=== PATIENT | male | born 1970 | race Caucasian/White ===

== ENCOUNTER 2018-08-12 18:01 | Emergency (ER) | payer BC ==
[2018-08-12] MEDS ORDERED: FAMOTIDINE 20 MG/2 ML VIAL IV ONE (18:41)
[2018-08-12] MEDS ORDERED: ONDANSETRON 4 MG/2 ML VIAL ONE (18:41)
[2018-08-12 18:51] LABS: Absolute Lymphocytes (CBC) 2.3 K/uL (0.7-4.9); Absolute Monocytes 1.2 K/uL (0.1-1.3); Absolute Neutrophil 8.9 K/uL (1.8-8.0); Basophils % 0.5 % (0-1.3); Eosinophils % 3.2 % (0-4.4); Lymphocytes % 17.8 % (15.3-44.8); MPV 8.1 fL (7.6-11.3); Monocytes % 9.6 % (3.3-12.3); RBC Red Blood Cell Count 5.07 M/uL (4.33-5.43)
--- NOTE | 2018-08-12 19:04 | RAD REPORT ---
EXAM DESCRIPTION: CT - Stone Protocol - 08/12/2018 6:50 pm CLINICAL HISTORY: Abdominal pain, epigastric pain, gastric cramping, nausea, vomiting and diarrhea, prior hernia repair COMPARISON: None. TECHNIQUE: Axial [address] imaging of the abdomen and pelvis was performed without IV contrast. No IV contrast was given because of allergy, abnormal renal function, patient refusal or physician re quest. No oral contrast administered. All CT scans are performed using dose optimization technique as appropriate and may include automated exposure control or mA/KV adjustment according to patient size. FINDINGS: No suspicious findings in the lung bases. The liver, spleen and pancreas show no suspicious findings on non-contrast imaging. Gallbladder and b iliary tree are also without suspicious finding. Gallstones can be occult on CT imaging. No hydronephrosis or suspicious renal mass. No significant adrenal finding. Isodense renal masses an d pyelonephritis cannot be excluded in the absence of IV contrast. The urinary bladder is without sig nificant finding. No gastric dilatation or wall thickening. No epigastric abnormality seen. No free air, free fluid or inflammatory stranding. No mass or bulky lymphadenopathy. Postsurgical changes are present from prior left inguinal hernia repair. No acute process suspected. No suspicious bony findings. Advanced for age vascular calcifications. IMPRESSION: Non-contrast enhanced CT abdomen and pelvis imaging show emergent finding. Full assessment is limited is the absence of IV contrast.
[2018-08-12 19:05] LABS: ALT/SGPT 26 U/L (12-78); AST/SGOT 16 U/L (15-37); Albumin 3.8 g/dL (3.4-5.0); Alkaline Phosphatase 57 U/L (45-117); BUN Blood Urea Nitrogen 9 mg/dL (7-18); Bicarbonate 29 mmol/L (21-32); Bilirubin Direct < 0.1 mg/dL (0-0.2); Bilirubin Total 0.2 mg/dL (0.2-1.0); Glucose Level 100 mg/dL (74-106); Lipase 98 U/L (73-393); Potassium 3.7 mmol/L (3.5-5.1); Protein, Total 7.4 g/dL (6.4-8.2); Sodium Level 142 mmol/L (136-145)
--- NOTE | 2018-08-12 19:17 | ER ---
Nurse's Notes [facility] Name: Juventino Klein Age: 47 yrs Sex: Male : 1970 Arrival Date: 08/12/2018 Time: 18:05 Bed 23 Private MD: Diagnosis: Generalized abdominal pain Presentation: 08/12 18:06 Presenting complaint: Patient states: my stomach is crampy and felt tight, and i fell hj bloated; reports diarrhea reports N/V; denies fever and chills; denies taking meds LABEL DRIER:. Transition of care: patient was not received from another setting of care. Onset of symptoms was August 12, 2018. Risk Assessment: Do you want to hurt yourself or someone else? Patient reports no desire to harm self or others. Initial Sepsis Screen: Does the patient meet any 2 criteria? No. Patient's initial sepsis screen is negative. Does the patient have a suspected source of infection? No. Patient's initial sepsis screen is negative. 18:06 Method Of Arrival: Ambulatory 18:06 Acuity: PARISH 3 18:07 Care prior to arrival: None. Triage Assessment: 18:08 General: Appears in no apparent distress. uncomfortable, Behavior is calm, cooperative, hj appropriate for age. Pain: Complains of pain in abdomen. GI: Reports lower abdominal pain, upper abdominal pain, diarrhea, nausea, vomiting. Historical: - Allergies: 18:08 No Known Allergies; hj - Home Meds: 18:08 None [Active]; hj - PMHx: 18:08 None; hj - PSHx: 18:08 Hernia repair; hj - Immunization history:: Adult Immunizations up to date. - Social history:: Smoking status: Patient uses tobacco products, Patient/guardian denies using alcohol. - Ebola Screening: : Patient negative for fever greater than or equal to 101.5 degrees Fahrenheit, and additional compatible Ebola Virus Disease symptoms Patient denies exposure to infectious person Patient denies travel to an Ebola-affected area in the 21 days before illness onset. Screenin:09 Abuse screen: Denies threats or abuse. Denies injuries from another. Nutritional hj screening: No deficits noted. Tuberculosis screening: No symptoms or risk factors identified. Fall Risk None identified. Assessment: 18:09 GI: Bowel sounds present X 4 quads. hj Vital Signs: 18:09 BP 148 / 99; Pulse 105; Resp 18; Temp 99.2(TE); Pulse Ox 99% on R/A; Weight 102.06 kg; hj Height 5 ft. 11 in. (180.34 cm); Pain 8/10; 21:12 BP 138 / 79; Pulse 99; Resp 16; Temp 99.0; Pulse Ox 99% on R/A; Pain 3/10; ls4 18:09 Body Mass Index 31.38 (102.06 kg, 180.34 cm) ED Course: 18:05 Patient arrived in ED. mr 18:07 Triage completed. hj 18:09 Arm band placed on right wrist. hj 18:09 Patient has correct armband on for positive identification. Placed in gown. Bed in low hj position. Call light in reach. Side rails up X 1. 18:15 Adam Abad MD is Attending Physician. 18:16 Ya Rivas, TERRI is Primary Nurse. ls4 18:45 No provider procedures requiring assistance completed. Initial lab(s) drawn, by me, ls4 sent to lab. Inserted saline lock: 20 gauge in right antecubital area, using aseptic technique. Blood collected. 18:[address] via wheelchair. vm2 18:50 CT completed. Patient tolerated procedure well. Patient moved back from CT. vm2 18:51 CT Stone Protocol In Process Unspecified. EDMS 20:08 Notified ED physician of other PT MENTIONED, TO ME, THAT HE HAS BURNING WITH URINATION ls4 AND THOUGHT IT WAS BECAUSE HE WAS DEHYDRATED SO HE HAS BEEN TRYING TO DRINK A LOT OF WATER. INFORMED DR ABAD WHO WAS NOT TOLD THIS BY PATIENT. DR ABAD ORDERED ADDITION URINE LABS. DISCHARGE DELAYED. 21:11 IV discontinued, intact, bleeding controlled, No redness/swelling at site. Pressure ls4 dressing applied. Administered Medications: 18:43 Drug: Pepcid 20 mg Route: IVP; Site: right antecubital; ls4 19:13 Follow up: Response: No adverse reaction; No change in condition ls4 18:44 Drug: Zofran 4 mg Route: IVP; Site: right antecubital; ls4 19:13 Follow up: Response: No adverse reaction; No change in condition ls4 19:14 Drug: TORadol 30 mg Route: IVP; Site: right antecubital; ls4 19:45 Follow up: Response: No adverse reaction; Marked relief of symptoms ls4 Outcome: 19:17 Discharge ordered by . jael 21:10 Discharged to home ambulatory, with family. ls4 21:10 Condition: stable 21:10 Discharge instructions given to patient, family, Instructed on discharge instructions, follow up and referral plans. no drinking with medication, no driving heavy equipment, medication usage, safety practices, Demonstrated understanding of instructions, medications, Prescriptions given X 4. 21:13 Patient left the ED. ls4 Signatures: Dispatcher [employer] RENABeckie CavazosOsiel, RN RN Michelle Torres 2 Adam Abad MD MD gs Stewart, Lisa, RN RN ls4 Corrections: (The following items were deleted from the chart) 18:08 18:06 Presenting complaint: Patient states: my stomach is crampy and felt tight, and i hj fell bloated; reports diarrhea; denies fever and chills; denies taking meds LABEL DRIER: 18:11 18:09 Pulse 105bpm; Resp 18bpm; Pulse Ox 99% RA; Temp 99.2F Temporal; 102.06 kg; Height 5 ft. 11 in.; BMI: 31.3; Pain 8/10; hj
--- NOTE | 2018-08-12 19:17 | EDPHYS ---
Physician Documentation [facility] Name: Juventino Klein Age: 47 yrs Sex: Male : 1970 Arrival Date: 08/12/2018 Time: 18:05 Bed 23 Private MD: ED Physician Adam Abad HPI: 08/12 19:07 This 47 yrs old Male presents to ER via Ambulatory with complaints of gs Abdominal Pain. 19:07 The patient presents with abdominal pain that is diffuse. Onset: The symptoms/episode gs began/occurred 2 day(s) ago, and became persistent. Associated signs and symptoms: Pertinent positives: nausea, Pertinent negatives: blood in stools, diarrhea, vomiting. The symptoms are described as crampy. Modifying factors: The symptoms are alleviated by nothing, the symptoms are aggravated by nothing. Severity of pain: At its worst the pain was moderate in the emergency department the pain has improved moderately. The patient has not experienced similar symptoms in the past. The patient has not recently seen a physician. Historical: - Allergies: 18:08 No Known Allergies; hj - Home Meds: 18:08 None [Active]; hj - PMHx: 18:08 None; hj - PSHx: 18:08 Hernia repair; hj - Immunization history:: Adult Immunizations up to date. - Social history:: Smoking status: Patient uses tobacco products, Patient/guardian denies using alcohol. - Ebola Screening: : Patient negative for fever greater than or equal to 101.5 degrees Fahrenheit, and additional compatible Ebola Virus Disease symptoms Patient denies exposure to infectious person Patient denies travel to an Ebola-affected area in the 21 days before illness onset. ROS: 19:07 Cardiovascular: Negative for chest pain. gs 19:07 Respiratory: Negative for shortness of breath. 19:07 All other systems are negative. Exam: 19:07 Head/Face: Normocephalic, atraumatic. Eyes: Pupils equal round and reactive to light, gs extra-ocular motions intact. Lids and lashes normal. Conjunctiva and sclera are non-icteric and not injected. Cornea within normal limits. Periorbital areas with no swelling, redness, or edema. ENT: Nares patent. No nasal discharge, no septal abnormalities noted. Tympanic membranes are normal and external auditory canals are clear. Oropharynx with no redness, swelling, or masses, exudates, or evidence of obstruction, uvula midline. Mucous membranes moist. Neck: Trachea midline, no thyromegaly or masses palpated, and no cervical lymphadenopathy. Supple, full range of motion without nuchal rigidity, or vertebral point tenderness. No Meningismus. Chest/axilla: Normal chest wall appearance and motion. Nontender with no deformity. No lesions are appreciated. Cardiovascular: Regular rate and rhythm with a normal S1 and S2. No gallops, murmurs, or rubs. Normal PMI, no JVD. No pulse deficits. Respiratory: Lungs have equal breath sounds bilaterally, clear to auscultation and percussion. No rales, rhonchi or wheezes noted. No increased work of breathing, no retractions or nasal flaring. Back: No spinal tenderness. No costovertebral tenderness. Full range of motion. Skin: Warm, dry with normal turgor. Normal color with no rashes, no lesions, and no evidence of cellulitis. MS/ Extremity: Pulses equal, no cyanosis. Neurovascular intact. Full, normal range of motion. Neuro: Awake and alert, GCS 15, oriented to person, place, time, and situation. Cranial nerves II-XII grossly intact. Motor strength 5/5 in all extremities. Sensory grossly intact. Cerebellar exam normal. Normal gait. 19:07 Constitutional: The patient appears alert, awake. 19:07 Abdomen/GI: Palpation: mild abdominal tenderness, in all quadrants, rebound tenderness, is not appreciated. 19:07 ECG was reviewed by the Attending Physician. Vital Signs: 18:09 BP 148 / 99; Pulse 105; Resp 18; Temp 99.2(TE); Pulse Ox 99% on R/A; Weight 102.06 kg; hj Height 5 ft. 11 in. (180.34 cm); Pain 8/10; 21:12 BP 138 / 79; Pulse 99; Resp 16; Temp 99.0; Pulse Ox 99% on R/A; Pain 3/10; ls4 18:09 Body Mass Index 31.38 (102.06 kg, 180.34 cm) MDM: 18:25 Patient medically screened. 19:07 Differential diagnosis: diverticulitis, gastritis, non-specific abd pain. Data gs reviewed: vital signs, nurses notes. 19:07 Counseling: I had a detailed discussion with the patient and/or guardian regarding: the historical points, exam findings, and any diagnostic results supporting the discharge/admit diagnosis, the presence of at least one elevated blood pressure reading (>120/80) during this emergency department visit, the need for outpatient follow up. Response to treatment: the patient's symptoms have markedly improved after treatment, and as a result, I will discharge patient. 19:16 Differential diagnosis: bowel obstruction, pancreatitis. 08/12 18:26 Order name: Basic Metabolic Panel; Complete Time: 19:06 08/12 18:26 Order name: CBC with Diff; Complete Time: 19:06 08/12 18:26 Order name: Hepatic Function; Complete Time: 19:06 08/12 18:26 Order name: Lipase; Complete Time: 19: 08/12 19:56 Order name: Urine Dipstick--Ancillary (enter results); Complete Time: 20:25 [facility] 08/12 20:05 Order name: Urine Microscopic Only; Complete Time: 20:58 [facility] 08/12 18:26 Order name: IV Saline Lock; Complete Time: 18:35 08/12 18:26 Order name: Labs collected and sent; Complete Time: 18:35 08/12 18:26 Order name: CT Stone Protocol; Complete Time: 19:06 08/12 18:26 Order name: EKG - Nurse/Tech; Complete Time: 18:35 08/12 20:52 Order name: Urine Culture [facility] 08/12 19:47 Order name: Urine Dipstick-Ancillary (obtain specimen); Complete Time: 20:06 EC:07 Rate is 92 beats/min. Rhythm is regular. DE interval is normal. QRS interval is normal. QT interval is normal. T waves are Normal. No ST changes noted. Clinical impression: Normal ECG. Interpreted by me. Administered Medications: 18:43 Drug: Pepcid 20 mg Route: IVP; Site: right antecubital; ls4 19:13 Follow up: Response: No adverse reaction; No change in condition ls4 18:44 Drug: Zofran 4 mg Route: IVP; Site: right antecubital; ls4 19:13 Follow up: Response: No adverse reaction; No change in condition ls4 19:14 Drug: TORadol 30 mg Route: IVP; Site: right antecubital; ls4 19:45 Follow up: Response: No adverse reaction; Marked relief of symptoms ls4 Disposition: 08/12/18 19:17 Discharged to Home. Impression: Generalized abdominal pain. - Condition is Stable. - Discharge Instructions: Abdominal Pain, Adult, Managing Your Hypertension. - Prescriptions for Pepcid 20 mg Oral Tablet - take 1 tablet by ORAL route every 12 hours for 10 days; 20 tablet. Zofran 4 mg Oral Tablet - take 1 tablet by ORAL route every 12 hours As needed; 6 tablet. Tramadol 50 mg Oral Tablet - take 1 tablet by ORAL route every 8 hours as needed; 12 tablet. Levaquin 750 mg Oral Tablet - take 1 tablet by ORAL route once daily for 10 days; 7 tablet. - Medication Reconciliation Form, Thank You Letter, Antibiotic Education, Prescription Opioid Use form. - Follow up: Private Physician; When: 2 - 3 days; Reason: Re-evaluation by your physician. Signatures: Dispatcher [employer] EDMS Osiel La RN RN Adam Abad MD MD Ya Rivas RN RN ls4 Corrections: (The following items were deleted from the chart) 21:13 19:17 08/12/2018 19:17 Discharged to Home. Impression: Generalized abdominal pain. ls4 Condition is Stable. Forms are Medication Reconciliation Form, Thank You Letter, Antibiotic Education, Prescription Opioid Use. Follow up: Private Physician; When: 2 - 3 days; Reason: Re-evaluation by your physician. gs
[2018-08-12] MEDS ORDERED: KETOROLAC 30 MG/ML INJ ONE (19:20)
[2018-08-12 20:12] LABS: Urine Blood TRACE (NEG); Urine Glucose NEGATIVE (NEG); Urine Protein NEGATIVE (NEG); Urine pH 6.5 (5.0-7.0)
[2018-08-12 20:51] LABS: Urine Bacteria <20 /HPF (NONE SEEN); Urine Culture Reflex Order REFLEXED; Urine Mucus 1+ /HPF (NONE SEEN)
--- NOTE | 2018-08-13 07:18 | EKG ---
Test Date: 2018-08-12 Test Time: 18:40:00 Smash Hand: MARCELA MEASUREMENT RESULTS: Intervals: Rate: 92 OK: 164 QRSD: 80 QT: 348 QTc: 430 [place]: P: 40 OK: 164 QRS: -2 T: 45 INTERPRETIVE STATEMENTS: Normal sinus rhythm Possible Left atrial enlargement Borderline ECG Compared to ECG 03/16/2008 21:48:06 No significant changes Electronically Signed On 08-13-18 07:17:46 ORGANIZATIONAL DEVELOPMENT CONSULTANT by Jayce Escobar
== END 2018-08-12 21:13 | disposition home or self-care (01) ==
LOC: ER 18:01
DX: R10.84 Generalized abdominal pain (principal); Z72.0 Tobacco use
CPT/HCPCS: 36415; 74176; 76377; 80048; 80076; 81003; 81015; 83690; 85025; 87086; 87088; 93005; 96374; 96375; 99284; J2405

== ENCOUNTER 2018-08-14 18:28 | Emergency (ER) | payer BC ==
[2018-08-14] MEDS ORDERED: ONDANSETRON 4 MG/2 ML VIAL ONE (20:08)
[2018-08-14] MEDS ORDERED: FAMOTIDINE 20 MG/2 ML VIAL IV ONE (20:08)
[2018-08-14] MEDS ORDERED: KETOROLAC 30 MG/ML INJ ONE (20:08)
[2018-08-14 20:16] LABS: Absolute Monocytes 1.1 K/uL (0.1-1.3); Basophils % 0.6 % (0-1.3); Eosinophils % 5.3 % (0-4.4); Hematocrit 46.6 % (39.6-49.0); Lymphocytes % 18.3 % (15.3-44.8); MPV 8.4 fL (7.6-11.3); Monocytes % 9.9 % (3.3-12.3); RBC Red Blood Cell Count 5.15 M/uL (4.33-5.43)
--- NOTE | 2018-08-14 20:16 | RAD REPORT ---
EXAM DESCRIPTION: US - Abdomen Exam Limited - 08/14/2018 7:45 pm CLINICAL HISTORY: Right upper quadrant pain COMPARISON: CT study August 12 FINDINGS: No gallstones, sludge or other abnormalities within the gallbladder lumen. There is no wal l thickening or pericholecystic fluid. No common duct stone or biliary tree dilatation identified. IMPRESSION: Normal gallbladder and biliary tree ultrasound.
[2018-08-14 20:20] LABS: ALT/SGPT 26 U/L (12-78); AST/SGOT 18 U/L (15-37); Albumin 3.9 g/dL (3.4-5.0); Alkaline Phosphatase 62 U/L (45-117); BUN Blood Urea Nitrogen 8 mg/dL (7-18); Bicarbonate 30 mmol/L (21-32); Bilirubin Direct < 0.1 mg/dL (0-0.2); Bilirubin Total 0.2 mg/dL (0.2-1.0); Glucose Level 107 mg/dL (74-106); Lipase 111 U/L (73-393); Potassium 3.9 mmol/L (3.5-5.1); Protein, Total 7.9 g/dL (6.4-8.2); Sodium Level 140 mmol/L (136-145)
[2018-08-14 20:59] LABS: Urine Blood TRACE (NEG); Urine Glucose NEGATIVE (NEG); Urine Protein NEGATIVE (NEG); Urine Specific Gravity 1.015 (1.005-1.030); Urine pH 6.5 (5.0-7.0)
[2018-08-14] MEDS ORDERED: LIDOCAINE VISCOUS 2% SOLN 15 ML UDC ONE (21:45)
[2018-08-14] MEDS ORDERED: MAGNE/ALUM HYDROXD 30 ML UCUP ONE (21:45)
--- NOTE | 2018-08-14 21:58 | EDPHYS ---
Physician Documentation [facility] Name: Juventino Klein Age: 47 yrs Sex: Male : 1970 Arrival Date: 08/14/2018 Time: 18:30 Bed 24 Private MD: ED Physician Amador Nieves HPI: 08/14 19:30 This 47 yrs old Male presents to ER via Ambulatory with complaints of Back pm1 Pain, Abdominal Pain. 19:30 The patient presents with abdominal pain in the right upper quadrant. pm1 19:30 Onset: The symptoms/episode began/occurred 1 week(s) ago. The symptoms radiate to back. pm1 Associated signs and symptoms: Pertinent negatives: nausea, vomiting, and diarrhea, chest pain, dysuria, shortness of breath. The symptoms are described as burning, constant. Modifying factors: The symptoms are alleviated by nothing, the symptoms are aggravated by food. Severity of pain: in the emergency department the pain is unchanged. The patient has been recently seen at the [facility] Emergency Department, this week, for similar complaints labs were performed, CT scan was performed, was given a prescription for pain medications. Historical: - Allergies: 19:12 No Known Allergies; aj - Home Meds: 19:12 None [Active]; aj - PMHx: 19:12 None; aj - PSHx: 19:12 Hernia repair; aj - Immunization history:: Adult Immunizations up to date. - Social history:: Smoking status: Patient uses tobacco products, smokes one pack cigarettes per day. - Ebola Screening: : Patient negative for fever greater than or equal to 101.5 degrees Fahrenheit, and additional compatible Ebola Virus Disease symptoms Patient denies exposure to infectious person Patient denies travel to an Ebola-affected area in the 21 days before illness onset No symptoms or risks identified at this time. ROS: 19:30 Constitutional: Negative for fever, chills, and weight loss, Eyes: Negative for injury, pm1 pain, redness, and discharge, ENT: Negative for injury, pain, and discharge, Neck: Negative for injury, pain, and swelling, Cardiovascular: Negative for chest pain, palpitations, and edema, Respiratory: Negative for shortness of breath, cough, wheezing, and pleuritic chest pain. 19:30 Back: Negative for injury and pain, : Negative for injury, bleeding, discharge, and swelling, MS/Extremity: Negative for injury and deformity, Skin: Negative for injury, rash, and discoloration, Neuro: Negative for headache, weakness, numbness, tingling, and seizure. 19:30 Abdomen/GI: Positive for abdominal pain, Negative for nausea, vomiting, and diarrhea. Exam: 19:30 Constitutional: This is a well developed, well nourished patient who is awake, alert, pm1 and in no acute distress. Head/Face: Normocephalic, atraumatic. Eyes: Pupils equal round and reactive to light, extra-ocular motions intact. Lids and lashes normal. Conjunctiva and sclera are non-icteric and not injected. Cornea within normal limits. Periorbital areas with no swelling, redness, or edema. ENT: Nares patent. No nasal discharge, no septal abnormalities noted. Tympanic membranes are normal and external auditory canals are clear. Oropharynx with no redness, swelling, or masses, exudates, or evidence of obstruction, uvula midline. Mucous membranes moist. Neck: Trachea midline, no thyromegaly or masses palpated, and no cervical lymphadenopathy. Supple, full range of motion without nuchal rigidity, or vertebral point tenderness. No Meningismus. Chest/axilla: Normal chest wall appearance and motion. Nontender with no deformity. No lesions are appreciated. Cardiovascular: Regular rate and rhythm with a normal S1 and S2. No gallops, murmurs, or rubs. Normal PMI, no JVD. No pulse deficits. Respiratory: Lungs have equal breath sounds bilaterally, clear to auscultation and percussion. No rales, rhonchi or wheezes noted. No increased work of breathing, no retractions or nasal flaring. 19:30 Back: No spinal tenderness. No costovertebral tenderness. Full range of motion. Skin: Warm, dry with normal turgor. Normal color with no rashes, no lesions, and no evidence of cellulitis. MS/ Extremity: Pulses equal, no cyanosis. Neurovascular intact. Full, normal range of motion. 19:30 Abdomen/GI: Inspection: abdomen appears normal, Bowel sounds: normal, Palpation: soft, mild abdominal tenderness, in the right upper quadrant, mass, is not appreciated, rebound tenderness, is not appreciated. 19:30 Neuro: Orientation: is normal, Motor: is normal, moves all fours. Vital Signs: 19:12 BP 150 / 102; Pulse 102; Resp 20; Temp 99.1; Pulse Ox 99% on R/A; Weight 101.15 kg; aj Height 5 ft. 11 in. (180.34 cm); 19:12 Body Mass Index 31.10 (101.15 kg, 180.34 cm) aj MDM: 19:20 Patient medically screened. pm1 21:56 ED course: GI cocktail resolved pain . pm1 21:56 Data reviewed: vital signs. pm1 21:56 Data interpreted: Pulse oximetry: on is 99 %. Interpretation: normal. pm1 21:56 Counseling: I had a detailed discussion with the patient and/or guardian regarding: the pm1 historical points, exam findings, and any diagnostic results supporting the discharge/admit diagnosis, lab results, radiology results, the need for outpatient follow up, for definitive care, a talcer, to return to the emergency department if symptoms worsen or persist or if there are any questions or concerns that arise at home. 08/14 19:25 Order name: Basic Metabolic Panel; Complete Time: 20:32 pm08/14 19:25 Order name: CBC with Diff; Complete Time: 20:32 pm08/14 19:25 Order name: Creatinine for Radiology; Complete Time: 20:32 pm08/14 19:25 Order name: Hepatic Function; Complete Time: 20:32 pm08/14 19:25 Order name: Lipase; Complete Time: 20:32 pm08/14 20:04 Order name: Urine Dipstick--Ancillary (enter results); Complete Time: 21:06 gm 08/14 19:25 Order name: IV Saline Lock; Complete Time: 19:54 pm08/14 19:25 Order name: Labs collected and sent; Complete Time: 19:54 pm08/14 19:25 Order name: US Abdomen Limited; Complete Time: 20:32 pm08/14 19:25 Order name: Urine Dipstick-Ancillary (obtain specimen); Complete Time: 20:07 pm1 Administered Medications: 20:06 Drug: TORadol 30 mg Route: IVP; Infused Over: 2 mins; Site: right antecubital; tl3 21:43 Follow up: Response: No adverse reaction tl3 20:06 Drug: Pepcid 20 mg Route: IVP; Infused Over: 2 mins; Site: right antecubital; tl3 21:42 Follow up: Response: No adverse reaction tl3 20:07 Drug: Zofran 4 mg Route: IVP; Infused Over: 2 mins; Site: right antecubital; tl3 21:43 Follow up: Response: No adverse reaction tl3 21:42 Drug: GI Cocktail without - (Maalox Suspension 30 ml, Lidocaine Liquid 2 % 15 tl3 ml) Route: PO; 21:43 Follow up: Response: Medication administered at discharge. tl3 Disposition: 08/15 02:09 Co-signature as Attending Physician, Amador Nieves MD I agree with the assessment and wa plan of care. Disposition: 08/14/18 21:57 Discharged to Home. Impression: Unspecified abdominal pain. - Condition is Stable. - Discharge Instructions: Abdominal Pain, Adult, Gastroesophageal Reflux Disease, Adult. - Medication Reconciliation Form, Thank You Letter, Antibiotic Education form. - Follow up: Emergency Department; When: As needed; Reason: Worsening of condition. Follow up: Amador Wing MD; When: 2 - 3 days; Reason: Recheck today's complaints, Continuance of care, Re-evaluation by your physician. - Problem is new. - Symptoms have improved. - Notes: continue taking the medications prescribed to you from your prior ER visit Signatures: Dispatcher [employer] Maribell Saha, RN RN aj Cecil Pacheco, PIPELINE DISPATCH OPERATOR PIPELINE DISPATCH OPERATOR pm1 Amador Nieves MD MD wa Lowrey, Tammy, RN RN tl3 Harshal Roldan RN RN mg2 Corrections: (The following items were deleted from the chart) 08/14 22:08 21:57 08/14/2018 21:57 Discharged to Home. Impression: Unspecified abdominal pain. mg2 Condition is Stable. Forms are Medication Reconciliation Form, Thank You Letter, Antibiotic Education, Prescription Opioid Use. Follow up: Emergency Department; When: As needed; Reason: Worsening of condition. Follow up: Amador Wing; When: 2 - 3 days; Reason: Recheck today's complaints, Continuance of care, Re-evaluation by your physician. Problem is new. Symptoms have improved. pm1
--- NOTE | 2018-08-14 21:58 | ER ---
Nurse's Notes [facility] Name: Juventino Klein Age: 47 yrs Sex: Male : 1970 Arrival Date: 08/14/2018 Time: 18:30 Bed 24 Private MD: Diagnosis: Unspecified abdominal pain Presentation: 08/14 19:11 Presenting complaint: Patient states: RUQ pain that radiates around to back for 1 week. aj Patient seen in this ER yesterday for same complaint. Pain is worse in the evening. Transition of care: patient was not received from another setting of care. Onset of symptoms was August 07, 2018. Risk Assessment: Do you want to hurt yourself or someone else? Patient reports no desire to harm self or others. Initial Sepsis Screen: Does the patient meet any 2 criteria? No. Patient's initial sepsis screen is negative. Does the patient have a suspected source of infection? No. Patient's initial sepsis screen is negative. Care prior to arrival: None. 19:11 Method Of Arrival: Ambulatory 19:11 Acuity: PARISH 3 aj Triage Assessment: 19:12 General: Appears in no apparent distress. comfortable, Behavior is calm, cooperative, aj appropriate for age. Pain: Complains of pain in right upper quadrant. Neuro: Level of Consciousness is awake, alert, obeys commands, Oriented to person, place, time, situation, Appropriate for age. Respiratory: Airway is patent Trachea midline Respiratory effort is even, unlabored, Respiratory pattern is regular, symmetrical. GI: Reports upper abdominal pain, diarrhea, nausea. Derm: Skin is intact, is healthy with good turgor, Skin is pink, warm \T\ dry. normal. Historical: - Allergies: 19:12 No Known Allergies; aj - Home Meds: 19:12 None [Active]; aj - PMHx: 19:12 None; aj - PSHx: 19:12 Hernia repair; aj - Immunization history:: Adult Immunizations up to date. - Social history:: Smoking status: Patient uses tobacco products, smokes one pack cigarettes per day. - Ebola Screening: : Patient negative for fever greater than or equal to 101.5 degrees Fahrenheit, and additional compatible Ebola Virus Disease symptoms Patient denies exposure to infectious person Patient denies travel to an Ebola-affected area in the 21 days before illness onset No symptoms or risks identified at this time. Screenin:03 Abuse screen: Denies threats or abuse. Nutritional screening: No deficits noted. tl3 Tuberculosis screening: No symptoms or risk factors identified. Fall Risk None identified. Assessment: 20:03 General: Appears uncomfortable, well groomed, well developed, well nourished, Behavior tl3 is calm, cooperative, appropriate for age. Pain: Complains of pain in abdomen and right upper quadrant Pain currently is 9 out of 10 on a pain scale. Neuro: Level of Consciousness is awake, alert, obeys commands, Oriented to person, place, time, situation, Appropriate for age. Cardiovascular: Patient's skin is warm and dry. Respiratory: Airway is patent Respiratory effort is even, unlabored, Respiratory pattern is regular, symmetrical. GI: No signs and/or symptoms were reported involving the gastrointestinal system. GI: Reports being really gassy. : No signs and/or symptoms were reported regarding the genitourinary system. EENT: Nares are clear with drainage noted. 21:43 Reassessment: Patient appears in no apparent distress at this time. No changes from tl3 previously documented assessment. Patient and/or family updated on plan of care and expected duration. Pain level reassessed. Patient is alert, oriented x 3, equal unlabored respirations, skin warm/dry/pink. Vital Signs: 19:12 BP 150 / 102; Pulse 102; Resp 20; Temp 99.1; Pulse Ox 99% on R/A; Weight 101.15 kg; aj Height 5 ft. 11 in. (180.34 cm); 19:12 Body Mass Index 31.10 (101.15 kg, 180.34 cm) aj ED Course: 18:30 Patient arrived in ED. mr 19:12 Triage completed. aj 19:12 Arm band placed on right wrist. Patient placed in waiting room, Patient notified of aj wait time. 19:15 Beckie Figueroa, TERRI is Primary Nurse. tl3 19:19 Cecil Pacheco NP is PHCP. pm1 19:19 Amador Nieves MD is Attending Physician. pm1 19:45 US Abdomen Limited In Process Unspecified. EDMS 20:03 Patient has correct armband on for positive identification. Bed in low position. tl3 20:03 No provider procedures requiring assistance completed. Inserted saline lock: 20 gauge tl3 in right antecubital area, using aseptic technique. Blood collected. 21:43 IV discontinued, intact, bleeding controlled, No redness/swelling at site. Pressure tl3 dressing applied. 21:57 Amador Wing MD is Referral Physician. pm1 Administered Medications: 20:06 Drug: TORadol 30 mg Route: IVP; Infused Over: 2 mins; Site: right antecubital; tl3 21:43 Follow up: Response: No adverse reaction tl3 20:06 Drug: Pepcid 20 mg Route: IVP; Infused Over: 2 mins; Site: right antecubital; tl3 21:42 Follow up: Response: No adverse reaction tl3 20:07 Drug: Zofran 4 mg Route: IVP; Infused Over: 2 mins; Site: right antecubital; tl3 21:43 Follow up: Response: No adverse reaction tl3 21:42 Drug: GI Cocktail without - (Maalox Suspension 30 ml, Lidocaine Liquid 2 % 15 tl3 ml) Route: PO; 21:43 Follow up: Response: Medication administered at discharge. tl3 Outcome: 21:57 Discharge ordered by . pm1 22:07 Discharged to home ambulatory. mg2 22:07 Condition: stable 22:07 Discharge instructions given to patient, Instructed on discharge instructions, follow up and referral plans. Demonstrated understanding of instructions, follow-up care. 22:08 Patient left the ED. mg2 Signatures: Dispatcher [employer] Maribell Saha, RN Beckie Naqvi mr Pacheco[place], SPICE MIXER SPICE MIXER pm1 Beckie Figueroa RN RN tl3 Harshal Roldan RN RN mg2
== END 2018-08-14 22:08 | disposition home or self-care (01) ==
LOC: ER 18:28
DX: R10.11 Right upper quadrant pain (principal); F17.210 Nicotine dependence, cigarettes, uncomplicated
CPT/HCPCS: 36415; 76705; 80048; 80076; 81003; 83690; 85025; 96374; 96375; 99284; J2405